=== PATIENT | female | born 1935 | race Caucasian/White ===

== ENCOUNTER 2017-12-13 15:08 | Outpatient (CLI) | payer MEDICARE, BC | END 2017-12-13 15:09 | disposition home or self-care (01) | LOC: BICMAMMO 15:08 | PROVIDERS: ATTEND Obstetrics & Gynecology | DX: Z12.31 Encounter for screening mammogram for malignant neoplasm of breast (principal) | CPT/HCPCS: 77063; 77067 ==

== ENCOUNTER 2019-03-14 12:24 | Emergency (ER) | payer MEDICARE, BC ==
--- NOTE | 2019-03-14 14:03 | ULT ---
EXAM: Left lower extremity venous Doppler US HISTORY: left lower extremity edema and pain FINDINGS: Grayscale, color-flow, Doppler evaluation, spectral analysis of the left lower extremity venous struc tures is performed with 2-D imaging. The left common femoral, superficial femoral, popliteal, posterior tibial, proximal greater saphenous and profunda femoral veins are imaged. There is normal luminal compressibility, flow, and augmentation the visualized deep venous structures of the left lower extremity. IMPRESSION: No evidence of a deep vein thrombosis in the left lower extremity.
== END 2019-03-14 14:25 | disposition home or self-care (01) ==
LOC: ERS 12:24
DX: M79.89 Other specified soft tissue disorders (principal); I10 Essential (primary) hypertension; Z86.73 Personal history of transient ischemic attack (TIA), and cerebral infarction without residual deficits

== ENCOUNTER 2019-12-19 15:44 | Emergency (ER) | payer MEDICARE, BC | END 2019-12-19 17:18 | disposition home or self-care (01) | LOC: ERS 15:44 | DX: R42 Dizziness and giddiness (principal); I10 Essential (primary) hypertension; Z86.73 Personal history of transient ischemic attack (TIA), and cerebral infarction without residual deficits; Z79.899 Other long term (current) drug therapy | CPT/HCPCS: 99283 ==

== ENCOUNTER 2020-02-09 12:58 | Inpatient (IN) | payer MEDICARE, BC ==
[2020-02-09 13:49] LABS: #Basophils 0.1 thou/uL (0.0-0.2); #Eosinphils 0.1 thou/uL (0.0-0.7); #Monocytes 1.1 thou/uL (0.11-0.59); #Neutrophils 9.6 thou/uL (1.40-6.50); %Basophils 0.8 % (0.0-1.0); %Eosinophils 0.5 % (0.0-10.0); %Lymphocytes 15.7 % (21.0-51.0); %Monocytes 8.8 % (0.0-10.0); %Neutrophils 74.2 % (42.0-75.0); Hemoglobin 14.4 g/dL (12.0-16.0); Mean Corpuscular HGB CONC 33.6 g/dL (32.0-36.0); Mean Corpuscular Hemoglobin 30.9 pg (27.0-31.0); Mean Corpuscular Volume 92.1 fL (78.0-98.0); Mean Platelet Volume 8.9 fL (7.4-10.4); Platelet Count 233 thou/uL (130-400); RBC Distribution Width 11.6 % (11.5-14.5); Red Blood Cell (RBC) Count 4.64 mill/uL (4.20-5.40); White Blood Cell (WBC) Count 12.9 thou/uL (4.8-10.8)
[2020-02-09 14:17] LABS: ALT (SGPT) 12 U/L (8-55); AST (SGOT) 15 U/L (5-34); Albumin 3.6 g/dL (3.4-4.8); Alkaline Phosphatase 127 U/L (40-110); Anion Gap 13 mmol/L (10-20); BUN (Urea Nitrogen) 15 mg/dL (9.8-20.1); Calc. Creatinine Clearance 0 mL/min (70-130); Calcium 9.1 mg/dL (7.8-10.44); Carbon Dioxide 24 mmol/L (23-31); Chloride 101 mmol/L (98-107); Estimated GFR-MDRD 41; Glucose 125 mg/dL (83-110); Lipase 29 U/L (8-78); Magnesium 2.2 mg/dL (1.6-2.6); Potassium 4.8 mmol/L (3.5-5.1); Protein, Total 6.6 g/dL (6.0-8.3); Sodium 133 mmol/L (136-145)
--- NOTE | 2020-02-09 15:00 | RAD ---
EXAM: CHEST ONE VIEW: History: Vomiting, patient not feeling well. Comparison: 02-23-15 FINDINGS: Borderline cardiomegaly. Slight blunting of the right costophrenic angle. Evidence for probable small right pleural effusion and possible very mild patchy ground glass opacity changes in the peripheral aspect of the right mid and lower lung zone. The left lung is clear. IMPRESSION: Borderline heart size. Evidence for small right pleural effusion with some minimal patchy ground glas s opacity changes in the right mid and lower lateral lung zone, nonspecific, but this can be seen wit h the viral pneumonias. Atherosclerosis of the aorta with ectasia. POS: RRE
--- NOTE | 2020-02-09 16:34 | PDOC.FPRHP ---
- History of Present Illness Chief Complaint: Elevated HR History of Present Illness: Pt is an 84 yo female with PMH significant for HTN who presents with "flutter of her heart" since November 2019. Since then she has experienced 1 month of intermittent n/v, decreased PO intake, fatigue, palpitations, dizziness, lightheadedness, and weakness. She is not short of breath while walking around the house. Denies chest pain. Her buffer copper is Dr. Guo and she states she has a "leaky heart valve". Dr. Beauchamp changed her medication to metoprolol from propranolol. She thinks she had a recent echo. She has not had a stress test or heart cath. She does have hx of TIA. She is unable to take ADRIÁN-I due to cough. She had an EGD a few years and was started on nexium. She no longer takes the medication. PCP: CALISTA Kirk in [place] ED Course: Given 20 mg IVP Lasix and 325 mg ASA in ED. - Allergies/Adverse Reactions Allergies Allergy/AdvReac Type Severity Reaction Status Date / Time Sulfa (Sulfonamide Allergy Verified 02/09/20 20:41 Antibiotics) - Home Medications Medication Instructions Recorded Confirmed Type Ergocalciferol (Vitamin D2) 400 unit PO DAILY 02/23/15 02/09/20 History [Vitamin D] Fish Oil 1,000 mg PO DAILY 02/23/15 02/09/20 History Vitamin B Complex [B Complex] 1 tablet PO DAILY 02/23/15 02/09/20 History Losartan [Cozaar] 50 mg PO 2100 02/09/20 02/09/20 History Metoprolol Tartrate [Lopressor] 25 mg PO BID 02/09/20 02/09/20 History - History PMHx: HTN, Hiatal Hernia, esophageal thickening, back pain requiring tramadol, GERD, vascular insufficiency, hx of DVT in 2016 PSHx: right knee surgery, neck surgery, hysterectomy FHx: Mother - heart complications; Father - Alzheimer's; Brother - Cancer Social: Denies significant tobacco history, alcohol, drugs Allergies: Sulfa, "Cholesterol Medication" causing her to be hospitalized - Review of Systems General: reports: weight/appetite/sleep changes. denies: fever/chills, night sweats Eyes: denies: eye pain, vision changes ENT: denies: nasal congestion, rhinorrhea Respiratory: reports: cough. denies: shortness of breath Cardiovascular: reports: palpitation, edema. denies: chest pain Gastrointestinal: denies: nausea, vomiting, diarrhea, constipation Genitourinary: denies: dysuria, polyuria Skin: denies: rashes, jaundice Musculoskeletal: denies: pain, stiffness, swelling Neurological: reports: weakness. denies: numbness, seizure Psychological: denies: anxiety, depression - Vital signs BP: 121/65 HR: 97 RR: `8 Tmax: 99.2 Pox: 95% on RA Wt: 90.7 kg - Physical Exam Constitutional: NAD, awake, alert and oriented HEENT: PERRLA, EOMI Neck: FROM, trachea midline Heart: no murmurs/rubs/gallops, no edema -Heart: irregular rate and rhythm -Lungs: minimal basilar crackles Abdomen: soft, non-tender, bowel sounds present Musculoskeletal: normal structure, normal tone, ROM grossly normal Neurological: no focal deficit, CN II-XII intact Skin: no rash/lesions, no jaundice Heme/Lymphatic: no purpura, no petechia Psychiatric: normal mood and affect, good judgment and insight FMR H&P: Results - Labs Result Diagrams: 02/09/20 13:33 02/09/20 13:33 Lab results: WBC 12.9 thou/uL (4.8-10.8) H 02/09/20 13:33 Hgb 14.4 g/dL (12.0-16.0) 02/09/20 13:33 Hct 42.7 % (36.0-47.0) 02/09/20 13:33 MCV 92.1 fL (78.0-98.0) 02/09/20 13:33 Plt Count 233 thou/uL (130-400) 02/09/20 13:33 Neutrophils % 74.2 % (42.0-75.0) 02/09/20 13:33 Sodium 133 mmol/L (136-145) L 02/09/20 13:33 Potassium 4.8 mmol/L (3.5-5.1) 02/09/20 13:33 Chloride 101 mmol/L (98-107) 02/09/20 13:33 Carbon Dioxide 24 mmol/L (23-31) 02/09/20 13:33 BUN 15 mg/dL (9.8-20.1) 02/09/20 13:33 Creatinine 1.25 mg/dL (0.6-1.1) H 02/09/20 13:33 Glucose 125 mg/dL (83-110) H 02/09/20 13:33 Lactic Acid 1.1 mmol/L (0.5-2.2) 02/09/20 13:33 Calcium 9.1 mg/dL (7.8-10.44) 02/09/20 13:33 Total Bilirubin 1.0 mg/dL (0.2-1.2) 02/09/20 13:33 AST 15 U/L (5-34) 02/09/20 13:33 ALT 12 U/L (8-55) 02/09/20 13:33 Alkaline Phosphatase 127 U/L (40-110) H 02/09/20 13:33 B-Natriuretic Peptide 449.7 pg/mL (0-100) H 02/09/20 13:30 Serum Total Protein 6.6 g/dL (6.0-8.3) 02/09/20 13:33 Albumin 3.6 g/dL (3.4-4.8) 02/09/20 13:33 Lipase 29 U/L (8-78) 02/09/20 13:33 - EKG Interpretation EKG: Atrial fibrillation rate controlled with inverted T waves in anterolateral leads - Radiology Interpretation Chest x-ray Status: report reviewed by me Additional comment: R sided pleural effusion, borderline heart size FMR H&P: A/P - Problem List (1) Atrial fibrillation Current Visit: Yes Status: Acute Code(s): I48.91 - UNSPECIFIED ATRIAL FIBRILLATION (2) HLD (hyperlipidemia) Current Visit: Yes Status: Acute Code(s): E78.5 - HYPERLIPIDEMIA, UNSPECIFIED (3) HTN (hypertension) Current Visit: Yes Status: Acute Code(s): I10 - ESSENTIAL (PRIMARY) HYPERTENSION (4) CHF (congestive heart failure) Current Visit: Yes Status: Acute Code(s): I50.9 - HEART FAILURE, UNSPECIFIED - Plan # A-fib rate controlled - cardiology consulted - appreciate recs - echo performed in the outpt setting - trend trops - start eliquis - continue metoprolol # CHF w/ R pleural effusion - echo perfromed in the outpt setting - lasix 20 mg PO daily; Lasix 20 mg IV given in ED # Elevated Creatinine - monitor improvement with lasix # Hx of HLD - not currently on medication; she did not tolerate a cholesterol medication well causing hospitalization # HTN - continue home meds VTE: eliquis Diet: HH, NPO midnight Fluids: SL Code: full Dispo: admit to tele inpatient for new onset a-fib with a component of heart decompensation. FMR H&P: Upper Level - Pertinent history 84 yo F with complaint of palpitations, SOB, and n/v. Symptoms have been off and on for about 1 month. She is an established pt of Dr Guo and had some amount of work up in the past few months though she doesnt remember what was done or why. She is currently taking a beta shakira and ARB for HTN. She has a cardiac hx significant for "a murmur." - Pertinent findings See internal combustion engineer note for full ROS, PE, vitals, and labs ROS General denies fever or chills CV Complains of palpitation, peripheral edema. Denies CP Resp Complains of SOB. Denies cough GI denies n/v/d/c or abdominal pain denies increased frequency or dysuria Neuro Complains of facial droop and slurred speech PE General A&O x4, NAD HEENT NCAT CV irregularly irregular, no murmur Resp mild basilar crackles b/l. no respiratory distress Abd non tender, no distension, normal BS Extremities no edema, equal pedal pulses Neuro no focal deficits - Plan Date/Time: 02/09/20 1632 Lito North, DO PGY3, have evaluated this patient and agree with findings/ plan as outlined by internal combustion engineer resident. Pertinent changes/additions are listed here. 1. New onset afib - currently rate controlled. Continue bblocker, admit to tele - consult cardiology in the morning. Given new onset afib and possible CHF there is concern for CAD. 2. Suspected CHF - given exam findings, xray c/w pulmonary effusion, and elevated BNP this is likely a mild exacerbation - order echo and monitor I/O, no current O2 requirement. see internal combustion engineer portion for management of chronic illness Code Full Diet NPO at midnight PPx lovenox Addendum - Attending - Attending Attestation Date/Time: 02/09/20 2746 I personally evaluated the patient and discussed the management with the team. I agree with the History, Examination, Assessment and Plan documented above with any addition or exceptions noted below.
[2020-02-09] MEDS ORDERED: Aspirin 325 MG TAB ONE (16:56)
[2020-02-09] MEDS ORDERED: Furosemide 20 MG/2 ML VIAL ONE (16:56)
[2020-02-09 17:12] LABS: Bilirubin Negative (Negative); Blood, Urine Negative (Negative); Clarity Clear (Clear); Glucose, Urine (Dipstick) Normal (Negative); Leukocyte Negative Leu/uL (Negative); Nitrite Negative (Negative); Protein, Urine (Dipstick) 10 mg/dL (Neg-Trace); Urobilinogen Normal mg/dL (Less than 2)
[2020-02-09 19:24] LABS: Troponin I Less than 0.010 ng/mL (< 0.028)
[2020-02-09] MEDS: Metoprolol Tartrate 25 MG TAB PO SCH (20:32)
[2020-02-09] MEDS: Losartan 25 MG TAB PO SCH (20:32)
[2020-02-09] MEDS: Apixaban 5 MG TAB PO SCH (20:32)
[2020-02-09 21:55] VITALS: BMI 31.4
[2020-02-09 22:27] LABS: Troponin I 0.012 ng/mL (< 0.028)
[2020-02-10 04:54] LABS: #Basophils 0.1 thou/uL (0.0-0.2); #Eosinphils 0.3 thou/uL (0.0-0.7); #Neutrophils 6.2 thou/uL (1.40-6.50); %Basophils 0.9 % (0.0-1.0); %Eosinophils 3.5 % (0.0-10.0); %Lymphocytes 20.7 % (21.0-51.0); %Neutrophils 64.9 % (42.0-75.0); Hemoglobin 12.8 g/dL (12.0-16.0); Mean Corpuscular HGB CONC 31.6 g/dL (32.0-36.0); Mean Corpuscular Hemoglobin 29.6 pg (27.0-31.0); Mean Corpuscular Volume 93.5 fL (78.0-98.0); Mean Platelet Volume 9.3 fL (7.4-10.4); Platelet Count 219 thou/uL (130-400); RBC Distribution Width 11.7 % (11.5-14.5); Red Blood Cell (RBC) Count 4.34 mill/uL (4.20-5.40); White Blood Cell (WBC) Count 9.6 thou/uL (4.8-10.8)
[2020-02-10 05:09] LABS: Hemoglobin A1c 5.6 % (4.0-6.0)
[2020-02-10 05:11] LABS: Anion Gap 12 mmol/L (10-20); BUN (Urea Nitrogen) 14 mg/dL (9.8-20.1); Calc. Creatinine Clearance 57 mL/min (70-130); Calcium 8.6 mg/dL (7.8-10.44); Carbon Dioxide 26 mmol/L (23-31); Cardiac Risk 3.9 (Less than 4.5); Chloride 101 mmol/L (98-107); Cholesterol 143 mg/dl (< 200 Desired); Estimated GFR-MDRD 49; Glucose 98 mg/dL (83-110); HDL Cholesterol 37 mg/dL (>60 Neg Risk); LDL Cholesterol, Calculated 90 mg/dL; Potassium 3.9 mmol/L (3.5-5.1); Sodium 135 mmol/L (136-145); Triglycerides 79 mg/dL (Less than 150)
--- NOTE | 2020-02-10 08:57 | PDOC.FM ---
- Subjective Subjective: Patient resting comfortably in bed this morning. Denies any complaints. Feels like her breathing has improved. Denies any chest pain, palpitations, "fluttering" in chest, SOB, fatigue. - Objective MAR Reviewed: Yes Vital Signs & Weight: Vital Signs (12 hours) Temp Pulse Resp BP Pulse Ox 02/10/20 08:00 97.8 F 94 18 120/65 94 L 02/10/20 04:00 98.7 F 92 20 128/79 94 L 02/09/20 23:56 98.0 F 80 18 142/63 H 96 Weight Weight 89.993 kg I&O: 02/09/20 02/10/20 02/11/20 06:59 06:59 06:59 Intake Total 320 Output Total 600 Balance -280 Result Diagrams: 02/10/20 04:07 02/10/20 04:07 Phys Exam - Physical Examination Constitutional: NAD HEENT: moist MMs, sclera anicteric Neck: no JVD, supple, full ROM Respiratory: no wheezing, clear to auscultation bilateral Cardiovascular: RRR, no significant murmur Gastrointestinal: soft, positive bowel sounds Musculoskeletal: no edema, pulses present Neurological: non-focal, normal sensation, moves all 4 limbs Psychiatric: normal affect, A&O x 3 Skin: no rash, normal turgor Dx/Plan (1) Atrial fibrillation Code(s): I48.91 - UNSPECIFIED ATRIAL FIBRILLATION Status: Acute Qualifiers: Atrial fibrillation type: unspecified Qualified Code(s): I48.91 - Unspecified atrial fibrillation (2) CHF (congestive heart failure) Code(s): I50.9 - HEART FAILURE, UNSPECIFIED Status: Acute Qualifiers: Heart failure type: unspecified Heart failure chronicity: unspecified Qualified Code(s): I50.9 - Heart failure, unspecified (3) HLD (hyperlipidemia) Code(s): E78.5 - HYPERLIPIDEMIA, UNSPECIFIED Status: Acute Qualifiers: Hyperlipidemia type: mixed hyperlipidemia Qualified Code(s): E78.2 - Mixed hyperlipidemia (4) HTN (hypertension) Code(s): I10 - ESSENTIAL (PRIMARY) HYPERTENSION Status: Acute Qualifiers: Hypertension type: essential hypertension Qualified Code(s): I10 - Essential (primary) hypertension - Plan Plan: Patient is a 84 yo female who presents with complaint of fatigue & SOB is found to be in AFib: # A-fib rate controlled - Cardiology consulted, Dr. Guo - appreciate recs -will consider cardioversion in outpatient setting - echo performed in the outpt setting - trend trops-neg x 2 - start eliquis 5 mg BID - continue metoprolol tartrate 25 mg BID # CHF w/ R pleural effusion - echo perfromed in the outpt setting - lasix 20 mg PO daily; Lasix 20 mg IV given in ED # Elevated Creatinine - monitor improvement with lasix # Hx of HLD - not currently on medication; she did not tolerate a cholesterol medication well causing hospitalization # HTN - continue home meds: Metoprolol, Losartan 50 mg daily VTE: eliquis Diet: HH, NPO midnight Fluids: SL Code: full Dispo: Stable, admit to tele inpatient for new onset a-fib with a component of heart decompensation. Await further recs from Cardiology. Anticipate discharge in next 24-48 hours. Addendum - Attending - Attending Attestation Date/Time: 02/10/20 2682 I personally evaluated the patient and discussed the management with Dr. Garcia. I agree with the History, Examination, Assessment and Plan documented above with any addition or exceptions noted below. Patient overall stable. Afib now rate controlled. Cardiology consulted. She recently had echo performed by them so no repeat at this time. On OAC now. Await further cardiology recs.
[2020-02-10] MEDS ORDERED: Enoxaparin Sodium 40 MG/0.4 ML SYRINGE SC SCH (09:00)
[2020-02-10] MEDS: Metoprolol Tartrate 25 MG TAB PO SCH ×2 (09:43→21:05)
[2020-02-10] MEDS: Furosemide 20 MG TAB PO SCH (09:43)
[2020-02-10] MEDS: Aspirin 325 mg Enteric Coated Tablet PO SCH (09:43)
[2020-02-10] MEDS: Apixaban 5 MG TAB PO SCH ×2 (09:44→21:06)
--- NOTE | 2020-02-10 18:41 | CON ---
DATE OF CONSULTATION: REASON FOR CONSULTATION: Atrial fibrillation with rapid ventricular response. HISTORY OF PRESENT ILLNESS: Ms. Ramos is a very pleasant 84-year-old woman, who was seen and evaluated in the past. She was recently presented with atrial fibrillation with RVR. She had associated shortness of breath, palpitations, and heart fluttering. No chest pain, pressure, or associated symptoms were noted. Her rate is currently controlled in the 90s. She states she feels much better. PAST MEDICAL HISTORY: 1. Hypertension. 2. Previous DVT. 3. Thrombophlebitis. 4. Venous insufficiency. HOME MEDICATIONS: Include; 1. Metoprolol. 2. Tramadol. 3. Losartan. 4. Cod Liver. PAST SURGICAL HISTORY: 1. Cataract removal. 2. Tonsillectomy. 3. Hysterectomy. 4. Cervical fusion. SOCIAL HISTORY: No current tobacco or alcohol use. ALLERGIES: SULFA. REVIEW OF SYSTEMS: A 10-point review of systems is reviewed as above, otherwise negative. PHYSICAL EXAMINATION: VITAL SIGNS: Blood pressure 112/68, pulse 98, temperature afebrile. GENERAL: Patient is a pleasant woman, who is in no acute distress. The patient appears their stated age. NEUROLOGIC: The patient is alert and oriented x3 with no focal neurologic deficits. HEENT: Sclerae without icterus. Mouth has moist mucous membranes with normal pallor. NECK: No JVD. Carotid upstroke brisk. No bruits bilaterally. LUNGS: Clear to auscultation with unlabored respirations. BACK: No scoliosis or kyphosis. CARDIAC: Irregularly irregular. ABDOMEN: Soft, nontender, nondistended. No peritoneal signs present. No hepatosplenomegaly. No abnormal striae. EXTREMITIES: 2+ femoral and 2+ dorsalis pedis pulses. No cyanosis, clubbing, or edema. SKIN: No gross abnormalities. LABORATORY DATA: CK-troponin negative. BNP 449. EKG; atrial fibrillation with ST-T wave changes suggesting ischemia versus LVH. IMPRESSION: Atrial fibrillation, new onset. RECOMMENDATIONS: 1. Agree with Eliquis. 2. Recommend echo. 3. The patient is currently on Lasix in addition to metoprolol. We will increase metoprolol to 37.5 mg p.o. b.i.d. At this point, if the patient is stable, will be okay from my standpoint to discharge home with close outpatient followup. Job ID: [id number]
[2020-02-10] MEDS ORDERED: Benzonatate 100 MG CAP PO PRN (20:50)
[2020-02-10] MEDS: Losartan 25 MG TAB PO SCH (21:06)
[2020-02-11 04:44] LABS: #Basophils 0.1 thou/uL (0.0-0.2); #Eosinphils 0.4 thou/uL (0.0-0.7); #Lymphocytes 2.1 thou/uL (1.20-3.40); #Monocytes 0.9 thou/uL (0.11-0.59); %Basophils 0.9 % (0.0-1.0); %Eosinophils 5.1 % (0.0-10.0); %Lymphocytes 24.3 % (21.0-51.0); %Monocytes 10.7 % (0.0-10.0); Hemoglobin 12.2 g/dL (12.0-16.0); Mean Corpuscular Hemoglobin 29.5 pg (27.0-31.0); Mean Corpuscular Volume 92.1 fL (78.0-98.0); Mean Platelet Volume 9.1 fL (7.4-10.4); Platelet Count 254 thou/uL (130-400); RBC Distribution Width 11.6 % (11.5-14.5); Red Blood Cell (RBC) Count 4.14 mill/uL (4.20-5.40); White Blood Cell (WBC) Count 8.5 thou/uL (4.8-10.8)
[2020-02-11 05:02] LABS: Anion Gap 12 mmol/L (10-20); BUN (Urea Nitrogen) 16 mg/dL (9.8-20.1); Calc. Creatinine Clearance 61 mL/min (70-130); Calcium 8.6 mg/dL (7.8-10.44); Carbon Dioxide 26 mmol/L (23-31); Chloride 103 mmol/L (98-107); Estimated GFR-MDRD 53; Glucose 98 mg/dL (83-110); Potassium 3.7 mmol/L (3.5-5.1); Sodium 137 mmol/L (136-145)
[2020-02-11] MEDS: Metoprolol Tartrate 25 MG TAB PO SCH (08:00)
[2020-02-11] MEDS: Furosemide 20 MG TAB PO SCH (08:01)
[2020-02-11] MEDS: Apixaban 5 MG TAB PO SCH (08:01)
[2020-02-11] MEDS: Aspirin 325 mg Enteric Coated Tablet PO SCH (08:01)
--- NOTE | 2020-02-11 08:51 | PDOC.FM ---
- Subjective Subjective: Patient lying in bed this morning, reports that she has no complaints. Was able to see Cardiology yesterday evening, talked about increasing her Metoprolol. Patient asked if her can be updated on care. Discussed plan for the day with patient in agreement. - Objective MAR Reviewed: Yes Vital Signs & Weight: Vital Signs (12 hours) Temp Pulse Resp BP Pulse Ox 02/11/20 07:12 98.3 F 92 18 117/70 95 02/11/20 03:15 97.6 F 85 18 135/71 96 02/11/20 00:00 90 16 Weight Weight 89.993 kg I&O: 02/10/20 02/11/20 02/12/20 06:59 06:59 06:59 Intake Total 320 240 Output Total 600 250 Balance -280 -10 Result Diagrams: 02/11/20 04:29 02/11/20 04:29 Phys Exam - Physical Examination Constitutional: NAD HEENT: moist MMs, sclera anicteric Neck: no JVD, supple, full ROM Respiratory: no wheezing, clear to auscultation bilateral Cardiovascular: RRR, no significant murmur Gastrointestinal: soft, no distention, positive bowel sounds Musculoskeletal: pulses present trace edema in BLE Neurological: normal sensation, moves all 4 limbs Psychiatric: normal affect, A&O x 3 Skin: no rash, normal turgor Dx/Plan (1) Atrial fibrillation Code(s): I48.91 - UNSPECIFIED ATRIAL FIBRILLATION Status: Acute Qualifiers: Atrial fibrillation type: unspecified Qualified Code(s): I48.91 - Unspecified atrial fibrillation (2) CHF (congestive heart failure) Code(s): I50.9 - HEART FAILURE, UNSPECIFIED Status: Acute Qualifiers: Heart failure type: unspecified Heart failure chronicity: unspecified Qualified Code(s): I50.9 - Heart failure, unspecified (3) HLD (hyperlipidemia) Code(s): E78.5 - HYPERLIPIDEMIA, UNSPECIFIED Status: Acute Qualifiers: Hyperlipidemia type: mixed hyperlipidemia Qualified Code(s): E78.2 - Mixed hyperlipidemia (4) HTN (hypertension) Code(s): I10 - ESSENTIAL (PRIMARY) HYPERTENSION Status: Acute Qualifiers: Hypertension type: essential hypertension Qualified Code(s): I10 - Essential (primary) hypertension - Plan Plan: Patient is a 84 yo female who presents with complaint of fatigue & SOB is found to be in AFib: # A-fib rate controlled - Cardiology consulted, Dr. Guo - appreciate recs -will consider cardioversion in outpatient setting -increase Metoprolol dose to 37.5 mg BID -wants to repeat ECHO prior to discharge - echo performed in the outpt setting at [facility] clinic, will repeat here today - trend trops-neg x 2 - start eliquis 5 mg BID - continue home metoprolol tartrate 25 mg BID, increased to 37.5 mg BID on 02/09 - rate has been in 80s-90s on telemetry monitoring, did have run up to 113 yesterday afternoon # CHF w/ R pleural effusion - echo performed in the outpt setting - lasix 20 mg PO daily; Lasix 20 mg IV given in ED # Elevated Creatinine - monitor improvement with lasix # Hx of HLD - not currently on medication; she did not tolerate a cholesterol medication well causing hospitalization # HTN - continue home meds: Metoprolol, Losartan 50 mg daily VTE: eliquis Diet: HH, NPO midnight Fluids: SL Code: full Dispo: Stable, admit to tele inpatient for new onset a-fib with a component of heart decompensation. ECHO today. Anticipate discharge in next 24-48 hours. Addendum - Attending - Attending Attestation Date/Time: 02/11/20 1201 I personally evaluated the patient and discussed the management with Dr. Garcia. I agree with the History, Examination, Assessment and Plan documented above with any addition or exceptions noted below. Patient HR controlled, TTE obtained. Cards has cleared for outpatient follow up. Stable for discharge.
[2020-02-11 11:36] VITALS: BP 133/76; TEMP 98.5
--- NOTE | 2020-02-11 12:03 | PQF ---
CLINICAL DOCUMENTATION IMPROVEMENT CLARIFICATION FORM: ICD-10 Updated PLEASE DO AN ADDENDUM TO THE PROGRESS NOTE WITH ANY DOCUMENTATION UPDATES OR ADDITIONS AND CARRY THROUGH TO DC SUMMARY. THANK YOU. DATE: 02/11/20 ATTN: DR. MARTINEZ Please exercise your independent, professional judgment in responding to the clarification form. Clinical indicators are provided on the bottom of this form for your review Please check appropriate box(s): HEART FAILURE: A. ACUITY [ X ] Acute [ ] Acute on Chronic [ ] Chronic B. TYPE [ ] Systolic / HFrEF [ ] Diastolic / HFpEF [ ] Combined Systolic / Diastolic [ ] Hypertensive Heart and Kidney disease [ ] Hypertensive Heart Disease [ ] Hypertensive Kidney Disease [ ] Other diagnosis [ X ] Unable to determine--ECHO PENDING In addition, please specify: Present on Admission (POA): [ X ] Yes [ ] No [ ] Unable to determine For continuity of documentation, please document condition throughout progress notes and discharge summary. Thank You. CLINICAL INDICATORS - SIGNS / SYMPTOMS / LABS / RESULTS AND LOCATION IN EMR ER NOTE: "CHF" H&P: "HEART FAILURE, ACUTE- UNSPECIFIED" PN 02/08: "SUSPECTED CHF" RISKS: H/O AFIB (ER) "LEAKY HEART VALVE" (PER H&P) TREATMENT: TELEMETRY MONITORING IV LASIX (ER) ECHO 02/10 CARDIOLOGY CONSULT SAP Packing Attendant [employer] Winform Viewer (This form is maintained as a part of the permanent medical record) 2014 [facility]. All Rights Reserved [email or web address]
--- NOTE | 2020-02-11 18:56 | DIS ---
DATE OF ADMISSION: 02/09/2020 DATE OF DISCHARGE: 02/11/2020 PRIMARY CARE PHYSICIAN: Liot Garner DO RESIDENT: Ya Garcia DO ADMITTING ATTENDING: Douglas Fitch MD DISCHARGE ATTENDING: Juliocesar Xavier MD CONSULT: Cardiology, Dewey Guo MD PROCEDURES: 1. Chest x-ray on February 09, 2020: Borderline cardiomegaly. Evidence for small right pleural effusion with some minimal patchy ground-glass opacity changes in the right mid and lower lateral lung zone, nonspecific. Atherosclerosis of the aorta with ectasia. Left lung is clear. 2. Echocardiogram on February 11, 2020, results are pending at the time of this dictation. PRIMARY DIAGNOSIS: New onset atrial fibrillation, rate controlled. SECONDARY DIAGNOSES: 1. Congestive heart failure with right pleural effusion, heart class pending based on echo results. 2. Elevated creatinine. 3. Hyperlipidemia. 4. Hypertension. DISCHARGE MEDICATIONS: 1. Eliquis 5 mg p.o. b.i.d. 2. Furosemide 20 mg p.o. daily. 3. Metoprolol tartrate 37.5 mg p.o. b.i.d. 4. Losartan 50 mg p.o. daily. 5. Fish oil 1000 mg p.o. daily. 6. Vitamin B complex one tablet p.o. daily. 7. Vitamin D2 of 400 units p.o. daily. DISCONTINUED MEDICATION: Metoprolol tartrate 25 mg p.o. b.i.d. HISTORY OF PRESENT ILLNESS/HOSPITAL COURSE: The patient is an 84-year-old female, who presented to [facility] Emergency Department on February 09, 2020 with complaint of "fluttering of her heart" since November 2019. Since that time, over the past one month she has had intermittent nausea, vomiting, decreased p.o. intake, fatigue, palpitations, dizziness, lightheadedness, weakness, and hot flashes. The patient denies being short of breath while walking around the house and denies chest pain. Her instrument/control technician is Dr. Guo and she states that he told her she had a "leaky heart valve." Dr. Guo changed her medication to metoprolol recently. The patient also reports a recent echo done by Dr. Guo at his office. She denies having had a stress test or heart catheterization in the past. She does have a history of TIA. The patient also reports that she is unable to take ADRIÁN inhibitors due to a cough. In the Emergency Department, the patient was given 20 mg IV Lasix and 325 mg aspirin. The patient was admitted to the inpatient on the telemetry floor for new onset atrial fibrillation. When she initially presented to the emergency room, she had been found to have a rate in the 120s to 130s. Her metoprolol was restarted and her rate quickly declined to the 80s to 90s. Troponins were trended and were negative. The patient was started on Eliquis 5 mg b.i.d. and metoprolol 25 mg b.i.d., and Lasix [address] Guo with Cardiology was called and he stated that he would see the patient the following day. He recommended performing an echocardiogram and increasing the metoprolol dosing to 37.[address] Guo mentioned that he would consider doing a cardioversion in the outpatient setting. On the morning of February 11, 2020, the patient was deemed stable for discharge back to home. She will have close followup with Dr. Guo within the next week or so for continued management. DISPOSITION: Stable. DISCHARGE INSTRUCTIONS: 1. Location: Home. 2. Diet: Heart healthy. 3. Activity: As tolerated. 4. Follow up with Dr. Guo, Cardiology in 7 days. 5. Follow up with PCP, Dr. aGrner on February 18, 2020 at 10 o'clock a.m. 6. Follow up with cardiac rehab in [place], [place]. Job ID: [id number]
== END 2020-02-11 12:01 | disposition home or self-care (01) | DRG 309 ==
LOC: ERS 12:58 → 2NO 16:39
PROVIDERS: ADMIT Student in an Organized Health Care Education/Training Program; ATTEND Student in an Organized Health Care Education/Training Program
DX: I48.91 Unspecified atrial fibrillation (principal); J90 Pleural effusion, not elsewhere classified; E78.5 Hyperlipidemia, unspecified; K21.9 Gastro-esophageal reflux disease without esophagitis; I11.0 Hypertensive heart disease with heart failure; I50.9 Heart failure, unspecified; Z88.2 Allergy status to sulfonamides; Z86.718 Personal history of other venous thrombosis and embolism; Z79.01 Long term (current) use of anticoagulants; Z86.73 Personal history of transient ischemic attack (TIA), and cerebral infarction without residual deficits; Z90.710 Acquired absence of both cervix and uterus; Z98.1 Arthrodesis status
CPT/HCPCS: 36415; 71045; 80048; 80053; 80061; 81003; 83036; 83605; 83690; 83735; 83880; 84443; 84484; 85025; 93005; 93306; 93798; 94760; 96374; J1940

== ENCOUNTER 2023-06-07 15:56 | Emergency (ER) | payer MEDICARE, BC ==
[~2023-06-07 15:56] MED LIST: Iopamidol-370 76% 500 ML MDV (1 ML CHARGE) ONE
[2023-06-07 18:28] LABS: #Basophils 0.1 thou/uL (0.0-0.2); #Eosinphils 0.4 thou/uL (0.0-0.7); #Monocytes 0.7 thou/uL (0.11-0.59); #Neutrophils 3.7 thou/uL (1.40-6.50); %Basophils 0.8 % (0.0-1.0); %Eosinophils 4.8 % (0.0-10.0); %Lymphocytes 33.8 % (21.0-51.0); %Monocytes 8.9 % (0.0-10.0); %Neutrophils 51.4 % (42.0-75.0); Hematocrit 42.2 % (36.0-47.0); Hemoglobin 13.9 g/dL (12.0-16.0); Mean Corpuscular HGB CONC 32.9 g/dL (32.0-36.0); Mean Corpuscular Hemoglobin 31.4 pg (27.0-31.0); Mean Corpuscular Volume 95.3 fl (78.0-98.0); Mean Platelet Volume 11.9 fL (7.4-10.4); Platelet Count 232 10x3/uL (130-400); RBC Distribution Width 13.3 % (11.5-14.5); Red Blood Cell (RBC) Count 4.43 mill/uL (4.20-5.40); White Blood Cell (WBC) Count 7.3 10x3/uL (4.8-10.8)
[2023-06-07 18:51] LABS: ALT (SGPT) 9 U/L (8-55); AST (SGOT) 15 U/L (5-34); Albumin 3.8 g/dL (3.4-4.8); Alkaline Phosphatase 113 U/L (40-110); Anion Gap 11 mmol/L (10-20); BUN (Urea Nitrogen) 14 mg/dL (9.8-20.1); Bilirubin, Total 0.3 mg/dL (0.2-1.2); Calc. Creatinine Clearance 0 mL/min (70-130); Calcium 9.1 mg/dL (7.8-10.44); Carbon Dioxide 28 mmol/L (23-31); Chloride 104 mmol/L (98-107); Estimated GFR 45; Globulin 3.1 g/dL (2.4-3.5); Glucose 95 mg/dL (83-110); Potassium 3.1 mmol/L (3.5-5.1); Protein, Total 6.9 g/dL (5.8-8.1); Sodium 140 mmol/L (136-145)
[2023-06-07 19:07] LABS: INR-International Normal Ratio 1.1; PTT 33.1 sec (22.9-36.1); Prothrombin Time 14.9 sec (12.0-14.7)
[2023-06-07 19:14] LABS: D-Dimer Test Less than 0.27 *mcg/mL (0.27-0.43)
== END 2023-06-07 21:36 | disposition home or self-care (01) ==
LOC: ERS 15:56
DX: M79.662 Pain in left lower leg (principal); I10 Essential (primary) hypertension; Z79.899 Other long term (current) drug therapy; Z79.01 Long term (current) use of anticoagulants
CPT/HCPCS: 80053; 85025; 85379; 85610; 85730; Q9967